=== PATIENT | male | born 1950 | race Two or more races ===

== ENCOUNTER 2017-05-23 06:27 | Day surgery (SDC) | payer BC, MEDICARE ==
--- NOTE | 2017-05-22 21:15 | Pre-op HX & Phy Repo 2 SIG ---
DATE OF ADMISSION: 05/23/2017 DATE OF SURGERY: 05/23/2017 PREOPERATIVE DIAGNOSIS: Dense epiretinal membrane, right eye. PROCEDURE TO BE PERFORMED: 1. Pars plana vitrectomy with ICG-assisted membrane peel, right eye. 2. Kenalog injection. Brief Note: This is the first 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 On prior examination, he was noted to have a very dense epiretinal membrane on that side. He has undergone sub-Tenon's and intravitreal injections without significant decrease in the amount of retinal thickening and is admitted for a pucker peel. PAST MEDICAL HISTORY: Remarkable for hypertension. PAST SURGICAL HISTORY: He has had no prior eye surgery. Medications: He is on lisinopril, simvastatin, and Centrum. ALLERGIES: He has no known allergies. SOCIAL HISTORY: He does not smoke, but does drink. PHYSICAL EXAMINATION: Ophthalmic: Best vision at the time of admission was 20/100-1 in the right eye and 20/25 in the left with pressures of 13. The anterior segments showed early nuclear sclerosis in either eye. Fundus examination of his right eye showed a significant epiretinal membrane. There was distortion and thickening of the macula. No hemorrhaging was seen. Vitreous floaters were noted. The left fundus showed a posterior vitreous separation with floaters. General focused physical examination was done by the patient's general physician. ASSESSMENT: 1. Puckering of macula, right eye. 2. Age-related nuclear cataract, both eyes. 3. Vitreous degeneration, both eyes. Plan: The plan is to perform a pars plana vitrectomy with peeling of the epiretinal membrane on the right eye. Kenalog will possibly be given, but this might be held because of prior reaction to steroids. The risks and benefits of surgery have been gone over with the patient including potential infection, hemorrhage, progression of the cataract, and remote possibility of loss of the eye. The risk of anesthesia was discussed. The patient understands and consents to the surgery, which will be performed on tomorrow morning. Sundar Castelan M.D. DR: JOSE JOB#: [id number] CC:
[2017-05-23] VITALS (10 sets, daily range): BP systolic 125–137; BP diastolic 68–80
[~2017-05-23] VITALS: Ht 180.3 cm; Wt 77.1 kg
--- NOTE | 2017-05-23 06:22 | Anethesia Preoperative Eval ---
Anesthesia Pre-op PMH/ROS General Date of Evaluation: May 23, 2017 Time of Evaluation: 06:20 Anesthesiologist: mitra ASA Score: ASA 2 Mallampati Score Class I : Soft palate, uvula, fauces, pillars visible Class II: Soft palate, uvula, fauces visible Class III: Soft palate, base of uvula visible Class IV: Only hard plate visible Mallampati Classification: Class II Surgeon: aliyah Diagnosis: macular pucker right eye Surgical Procedure: pars plana vitrectomy, membrane peeling with icg Anesthesia History: none Social History: smoking - nonsmoker, alcohol use Allergies: Coded Allergies: No Known Allergies (Unverified , 05/22/17) Medications: see eMAR Past Medical History Cardiovascular: Reports: HTN, other - hypercholesterolemia PSxH Narrative: tonsillectomy, inguinal herniorrhaphy Anesthesia Pre-op Phys. Exam Physician Exam Constitutional: NAD Neurologic: CN 2-12 intact Cardiovascular: RRR Respiratory: CTA Gastrointestinal: S/NT/ND Airway Exam Mallampati Score: Class II MO: full Neck: supple TMD: 2fb ROM: full Teeth: intact Anesthesia Pre-op A/P Risk Assessment & Plan Assessment: asa2 Plan: mac Status Change Before Surgery: No - pt admits to taking benadryl with a sip of water preoperatively Pre-Antibiotics Drug: CELE Tripp May 23, 2017 06:22
[~2017-05-23 06:27] MED LIST: Cyclopentolate 1% Opth Sol ONE; Flurbiprofen 0.03% Opth Sol 2.5ml ONE; Phenylephrine 2.5% Op Soln ONE; Vigamox Opth Soln ONE
[2017-05-23] MEDS ORDERED: Norco 5mg/325mg tab ORAL PRN (06:30)
--- NOTE | 2017-05-23 06:30 | Pre-Procedure Note/Attestation ---
Pre-Procedure Note/Attestation Complete Prior to Procedure Planned Procedure: right Procedure Narrative: PPV, ICG assisted membrane peel, endolaser Right eye Indications for Procedure Pre-Operative Diagnosis: Dense epiretinal membrane Right Eye Attestation I attest that I discussed the nature of the procedure; its benefits; risks and complications; and alternatives (and the risks and benefits of such alternatives ), prior to the procedure, with the patient (or the patient's legal employee relations representative). I attest that, if there was a reasonable possibility of needing a blood transfusion, the patient (or the patient's legal employee relations representative) was given the [facility] standardized written summary, pursuant to the Vaibhav Castlewood Blood Safety Act ([place] Health and Safety Code # 1645, as amended). I attest that I re-evaluated the patient just prior to the surgery and that there has been no change in the patient's H&P, except as documented below: DIONNE MOBLEY May 23, 2017 06:30
[2017-05-23] MEDS: Vigamox Opth Soln RIGHT EYE SCH ×3 (06:58→07:11)
[2017-05-23] MEDS: Cyclopentolate 1% Opth Sol RIGHT EYE SCH ×3 (06:58→07:11)
[2017-05-23] MEDS: Flurbiprofen 0.03% Opth Sol 2.5ml RIGHT EYE SCH ×3 (06:59→07:11)
[2017-05-23] MEDS: Phenylephrine 2.5% Op Soln RIGHT EYE SCH ×3 (06:59→07:11)
[2017-05-23] MEDS ORDERED: VITAMIN B COMP1 EAC2 ORAL (07:13)
[2017-05-23] MEDS ORDERED: VITAMIN C500 M1 ORAL (07:13)
[2017-05-23] MEDS ORDERED: BEANO1 EACH PO (07:13)
[2017-05-23] MEDS ORDERED: ZOCOR20 M1 ORAL (07:13)
[2017-05-23] MEDS ORDERED: DHEA50 MG PO (07:13)
[2017-05-23] MEDS ORDERED: SAW PALMETTO450 MG PO (07:13)
[2017-05-23] MEDS ORDERED: CENTRUM SILVER1 EAC7 PO (07:13)
[2017-05-23] MEDS ORDERED: BSS 500ml btl ONE (07:13)
[2017-05-23] MEDS ORDERED: PRED FORTE1 ML OP (07:13)
[2017-05-23] MEDS ORDERED: ACULAR LS5 ML RIGHT EYE (07:13)
[2017-05-23] MEDS ORDERED: LISINOPRIL20 MG ORAL (07:13)
[2017-05-23] MEDS ORDERED: Kenalog-10 5ml Inj ONE (07:14)
[2017-05-23] MEDS ORDERED: Maxitrol Opth Oint 3.5gm ONE (07:14)
[2017-05-23] MEDS ORDERED: Dexamethasone 4mg/ml vial ONE (07:14)
[2017-05-23] MEDS ORDERED: Kenalog-40 1ml Vial ONE (07:14)
[2017-05-23] MEDS ORDERED: Tetracaine 0.5% Opth Soln ONE (07:14)
[2017-05-23] MEDS ORDERED: EPINEPHrine 1mg/1ml Amp ONE (07:15)
[2017-05-23] MEDS ORDERED: Povidone-Iodine 5% opth solution ONE (07:15)
[2017-05-23] MEDS ORDERED: Sodium Hyaluronate 10 mg/ml 0.85ml ONE (07:15)
[2017-05-23] MEDS ORDERED: BSS 15ml BTL ONE (07:15)
[2017-05-23] MEDS ORDERED: Bupivacaine 0.75% 30ml vial INJ ONE (07:15)
[2017-05-23] MEDS ORDERED: Lidocaine 2% MPF 5ml Vial INJ ONE (07:15)
[2017-05-23] MEDS ORDERED: Sterile Water Irrig 1000ml IRRIG ONE (07:30)
[2017-05-23] MEDS ORDERED: LR 1000ml ONE (07:30)
[2017-05-23] MEDS ORDERED: Indocyanine Green 25mg Inj INJ ONE (07:30)
[2017-05-23] MEDS ORDERED: NS Irrig 1000ml ONE (07:30)
[2017-05-23] MEDS ORDERED: Lidocaine 1% MPF 10mg/ml 5ml ONE (07:30)
[2017-05-23] MEDS ORDERED: fentaNYL 100 mcg/2 mL IV ONE (07:30)
[2017-05-23] MEDS ORDERED: Propofol 200mg/20ml IV ONE (07:30)
[2017-05-23] MEDS ORDERED: Pred Forte 1% Opth Susp 1ml RIGHT EYE PRN (08:00)
[2017-05-23] MEDS ORDERED: LR 1000ml 1,000 ML IVLG SCH (08:17)
[2017-05-23] MEDS ORDERED: DiphenhydrAMINE 50mg/ml Inj IVP PRN (08:30)
[2017-05-23] MEDS ORDERED: Atropine Inj 1mg/10ml Syr IV PRN (08:30)
[2017-05-23] MEDS ORDERED: Hydromorphone 0.5mg/0.5ml inj IVP PRN (08:30)
[2017-05-23] MEDS ORDERED: Midazolam 2mg/2ml Inj IVP PRN (08:30)
--- NOTE | 2017-05-23 09:03 | Brief Operative Note ---
Immediate Post Operative Note Operative Note Chief Complaint: Blurred and distorted central vision R eye Pre-op Diagnosis: Dense epiretinal membrane Right Eye Procedure: PPV, ICG assisted membrane peel, endolaser 242 spots, air-fluid exchange Right eye Post-op Diagnosis: same as pre-op plus - Suspicious area at 6 00 which was lasered. Lamellar hole suggesting the need for air fluid exchange Surgeon: aliyah Anesthesiologist: Tatiana Anesthesia: MAC Specimen: none Complications: none Condition: stable Fluids: none Estimated Blood Loss: none Drains: none Implant(s) used?: No DIONNE MOBLEY May 23, 2017 09:03
--- NOTE | 2017-05-23 11:44 | Immediate Post-Op Evaluation ---
Immediate Post-Op Evalulation Immediate Post-Op Evalulation Procedure: pars planavitrectomy 23ga membrane peeling endolaser with icg Date of Evaluation: May 23, 2017 Time of Evaluation: 09:07 IV Fluids: 350ml lr Blood Products: none Estimated Blood Loss: negligible Blood Pressure Systolic: 125 Blood Pressure Diastolic: 80 Pulse Rate: 65 Respiratory Rate: 18 O2 Sat by Pulse Oximetry: 100 Temperature (Fahrenheit): 97.6 Pain Score (1-10): 0 Nausea: No Vomiting: No Complications none Patient Status: awake, reacts, patent Hydration Status: adequate Drug: CELE Tripp May 23, 2017 11:44
--- NOTE | 2017-05-23 11:45 | 48 Hour Post Anesthesia Eval ---
Post Anesthesia Evaluation Procedure: pars planavitrectomy 23ga membrane peeling endolaser with icg Date of Evaluation: May 23, 2017 Time of Evaluation: 11:44 Blood Pressure Systolic: 125 0: 80 Pulse Rate: 65 Respiratory Rate: 18 Temperature (Fahrenheit): 97.6 O2 Sat by Pulse Oximetry: 100 Airway: patent Nausea: No Vomiting: No Pain Intensity: 0 Hydration Status: adequate Cardiopulmonary Status: stable Mental Status/LOC: patient returned to baseline Post-Anesthesia Complications: none Follow-up care needed: N/A CELE SANTOS May 23, 2017 11:45
--- NOTE | 2017-05-23 22:45 | Operative Note - Dictated ---
DATE OF OPERATION: 05/23/2017 PREOPERATIVE DIAGNOSIS: Dense macular pucker, right eye. POSTOPERATIVE DIAGNOSIS: Dense macular pucker, right eye. PROCEDURES: 1. Pars plana vitrectomy. 2. ICG assisted membrane peel. 3. Endolaser. 4. Air-fluid exchange, right eye. SURGEON: Sundar Castelan M.D. FITTING ROOM MAINTENANCE MECHANIC: None. ANESTHESIA: Local sedation. ANESTHESIOLOGIST: Aissatou Simpson M.D. Justification For Surgery: This 66-year-old gentleman complained of distorted and blurred vision in the right eye. He was found to have a dense epiretinal membrane with retinal thickening and was admitted for repair. Brief Note: The patient was brought to the operating room and placed on operating room table in supine position. After a time-out was performed and agreed upon by the staff, an initial monitoring secured by Dr. Simpson. Retrobulbar and Van Lint blocks were given in the standard way. When the blocks had taken effect, he was prepped and draped in the normal manner. A lid speculum was inserted into the right eye. Using a 25-gauge trocar system, cannulas were placed in all except the infranasal quadrant. Infusion secured inferotemporally. Vitrectomy was begun posterior to the lens taking care to avoid contact. A central core vitrectomy was done followed by peripheral vitrectomy leaving a small vitreous skirt. A posterior viewing lens was then inserted and the posterior membrane stained with the single drop of ICG. Using intra-ocular forceps, the membrane was engaged over the papillomacular bundle and gently elevated and removed in an area roughly three disc diameters in size. The membrane came free of the macula very cleanly. There appeared to be a lamellar macular hole, but nothing full thickness. A [employer] agricultural equipment test engineer was used to engage areas of the peripheral membrane. Scleral depression was done and no peripheral breaks, tears, or detachments were seen, but a single melissa of hemorrhage was noted at the 6 o'clock position. The endolaser was brought into the eye with the intent of lasering around this area prophylactically. A power of 0.3 dey and duration of 0.2 seconds, a total of 242 lesions were applied down below and at other suspicious areas. An air-fluid exchange was then performed to the level of roughly 95%. The superotemporal cannula was removed and this wound closed with a single suture of 8-0 Vicryl suture. The remaining cannulas were removed and these were noted to be self-sealing. Subconjunctival Decadron and gentamicin were then injected. Maxitrol and atropine ointments were instilled. The eye was patched and shielded. The patient was taken to recovery in excellent condition. There were no complications. The patient is to be placed in a face-down position. Sundar Castelan M.D. DR: LOIDA JOB#: [id number] CC: Sundar Castelan M.D.; Fax#: [phone]
== END 2017-05-23 10:35 | disposition home or self-care (01) ==
LOC: SUR 06:27
DX: H35.371 Puckering of macula, right eye (principal); I10 Essential (primary) hypertension; E78.5 Hyperlipidemia, unspecified; Z82.49 Family history of ischemic heart disease and other diseases of the circulatory system; Z80.0 Family history of malignant neoplasm of digestive organs; E78.00 Pure hypercholesterolemia, unspecified
CPT/HCPCS: 67041; J0171; J1100; J2704; J3010; J3301; J3470; J3490; J7120; 94003; 94150